=== PATIENT | male | born 1985 | race Caucasian/White ===

== ENCOUNTER 2020-09-17 08:30 | Emergency (ER) | payer SELFPAY ==
[~2020-09-17] VITALS: Ht 185.4 cm; Wt 90.7 kg
[2020-09-17 08:33] VITALS: BP 148/108
[2020-09-17] MEDS ORDERED: cefTRIAXone SOD 1,000 MG VL IM ONE (09:30)
[2020-09-17] MEDS ORDERED: KETOROLAC TROMETH 60MG/2ML VIAL IM ONE (09:30)
== END 2020-09-17 09:44 | disposition home or self-care (01) ==
LOC: ER 08:30
DX: L02.511 Cutaneous abscess of right hand (principal); F17.210 Nicotine dependence, cigarettes, uncomplicated
CPT/HCPCS: 26010; 96372; 99284; J0696; J1885